=== PATIENT | male | born 2005 | race Caucasian/White ===

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

== ENCOUNTER 2023-05-09 22:46 | Inpatient (IN) | payer BC ==
[~2023-05-09] VITALS: Ht 170.2 cm; Wt 81.6 kg
[~2023-05-09 22:46] MED LIST changes: +KEP500 PO
[2023-05-09 22:59] VITALS: BP 126/74; PULSE 94; RESP 16; TEMP 98.2; O2SAT 97
--- NOTE | 2023-05-09 22:59 | NUR ---
PT ANTHONY ALS. TAKEN TO BED 11
--- NOTE | 2023-05-09 23:20 | NUR ---
BLOOD DRAWN BY IV ESTABLISHED IN [facility]. SENT TO LAB. PT PLACED ON C-MONITOR. AT BEDSIDE. UPDATED AND PT ON POC WITH FULL VERBAL UNDERSTANDING.
[2023-05-09 23:28] LABS: BASOPHILS # (AUTO) 0.1 K/uL (0.00-0.22); BASOPHILS % (AUTO) 0.8 % (0.0-2.0); EOSINOPHILS # (AUTO) 0.3 K/uL (0-0.4); EOSINOPHILS % (AUTO) 4.5 % (0.0-4.0); HEMATOCRIT 41.6 % (36-52); HEMOGLOBIN 14.5 g/dL (12.0-18.0); LYMPHOCYTES # (AUTO) 2.4 K/uL (2.0-11.5); LYMPHOCYTES % (AUTO) 36.9 % (20.5-51.1); MEAN CORPUSCULAR HEMOGLOBIN 29 pg (27-31); MEAN CORPUSCULAR HGB CONC 35 g/dL (33-37); MEAN CORPUSCULAR VOLUME 84.1 fL (80-94); MONOCYTES # (AUTO) 0.4 K/uL (0.8-1.0); NEUTROPHILS # (AUTO) 3.3 K/uL (1.8-7.7); NEUTROPHILS % (AUTO) 51.8 % (42.2-75.2); PLATELET COUNT (AUTO) 257 K/uL (140-450); RED BLOOD CELL COUNT(AUTO) 4.95 MIL/uL (4.20-6.10); RED CELL DISTRIBUTION WIDTH 13.9 % (11.6-13.7); WHITE BLOOD COUNT (AUTO) 6.4 K/uL (4.5-11.0)
[2023-05-09 23:35] LABS: ANION GAP 12.3 (8-16); CARBON DIOXIDE 25.6 mmol/L (21-32); POTASSIUM 3.9 mmol/L (3.5-5.1)
[2023-05-09] MEDS ORDERED: KETOROLAC 15 MG/ML VIAL IVP ONE (23:45)
--- NOTE | 2023-05-10 | NUR ---
Dr. Wolf examining patient.
[2023-05-10] MEDS ORDERED: LORazepam 2 MG/ML VIAL ONE (00:20)
[2023-05-10] MEDS ORDERED: LORazepam 2 MG/ML VIAL IVP ONE (00:20)
--- NOTE | 2023-05-10 00:23 | NUR ---
PATIENT HAD AN EPISODE OF TONIC-CLONIC SEIZURE LASTING ABOUT A MINUTE. PATIENT HAS NO RECOLLECTION OF EPISODE. ATIVAN GIVEN (SEE EMAR). BED PLACED IN LOWEST POSITION. SIDE RAILS UP WITH PADS ON SIDES. PATIENT PLACED IN SIDE-LYING POSITION. PATIENT PLACED ON SUPPLEMENTAL OXYGEN AT 1LPM PER ERMD AND ON CONTINUOUS MONITOR.
[2023-05-10] MEDS ORDERED: levETIRAcetam 1,000 MG in NACL 0.9% 100 ML IV ONE ×2 (00:50→18:25)
[2023-05-10] MEDS ORDERED: levETIRAcetam 100 MG/ML VIAL IV ONE ×2 (00:57→18:52)
--- NOTE | 2023-05-10 01:00 | NUR ---
PATIENT TAKEN TO CT.
--- NOTE | 2023-05-10 01:18 | NUR ---
PT RETURN FROM CT
--- NOTE | 2023-05-10 03:46 | NUR ---
PATIENT ASLEEP AND COMFORTABLE IN BED. NO SIGNS OF ACUTE DISTRESS AT THIS TIME. BED PLACED IN LOWEST POSITION. SIDE RAILS UP WITH PADS ON SIDES. PATIENT IN SIDE-LYING POSITION. PATIENT ON CONTINUOUS MONITOR. FAMILY MEMBER AT BEDSIDE. CALL LIGHT WITHIN REACH.
--- NOTE | 2023-05-10 07:42 | NUR ---
Pt report given to Samaria MOODY. Transfer of care at this time.
--- NOTE | 2023-05-10 08:00 | NUR ---
RECEIVED REPORT, ASSUMED CARE OF PT. PT AWAKE, ALERT, ORIENTED TO PERSON, TIME AND PLACE. PT SAYS HE CANNOT REMEMBER EVENTS SINCE SEIZURE. URINE SAMPLE OBTAINED. NO FURTHER SEIZURE ACTIVITY NOTED. FAMILY AT BEDSIDE.
[2023-05-10 08:10] LABS: APPEARANCE,URINE CLEAR (CLEAR); BILIRUBIN,URINE NEGATIVE (NEGATIVE); BLOOD, URINE TRACE-I (NEGATIVE); COLOR,URINE YELLOW (YELLOW); LEUKOCYTE ESTERASE ,URINE NEGATIVE (NEGATIVE); NITRITE, URINE NEGATIVE (NEGATIVE); UGLUCOSE NEGATIVE (NEGATIVE)
[2023-05-10 08:20] LABS: RBC,URINE 0-5 /HPF (0-5)
[2023-05-10] MEDS ORDERED: NACL 0.9% 1,000 ML IV ONE (10:30)
--- NOTE | 2023-05-10 11:37 | NUR ---
Patient will be admitted to care of DR HORNER. Admited to . Will go to room. Belongings list completed. Report to .
--- NOTE | 2023-05-10 11:50 | NUR ---
RECEIVE ER NURSE PAULETTE'S ENDORSEMENT FOR 18YR OLD MALE PATIENT WHO COME FOR TONIC-CLONIC SEIZURE WHILE WORK. PER REPORT THAT PATIENT HAD 2 EPISODE OF SEIZURE, WITH NKA, AMBULATORY, ALERT X 4 WHILE NO SEIZURE ACTIVITY. PATIENT ON ROOM AIR, CURRENT NPO STATUS. PIV AT LAC 18G FOR NS INFUSING AT 100ML/HR. NURSE LATER START ANOTHER PIV AT L.FOREARM 18G. BOTHE IV ACCESS PATENT. WILL CONTINUE TO MONITOR.
[2023-05-10 12:00] VITALS: BP 114/64; PULSE 60; PULSE 67; RESP 18; TEMP 98.4; O2SAT 98
[2023-05-10 16:00] VITALS: BP 112/69; PULSE 58; PULSE 75; RESP 18; TEMP 98.9; O2SAT 98
[2023-05-10 16:01] VITALS: PULSE 60; RESP 16; O2SAT 98
[2023-05-10] MEDS ORDERED: LORazepam 2 MG/ML VIAL IM/IVP PRN (18:30)
--- NOTE | 2023-05-10 19:30 | NUR ---
RECEIVED PT FROM AM NURSE FOR CONTINUITY OF CARE. PT IS STABLE
[2023-05-10 20:00] VITALS: BP 117/62; PULSE 70; PULSE 75; RESP 18; TEMP 99.1; O2SAT 98
[2023-05-11] VITALS: BP 112/64; PULSE 108; PULSE 78; RESP 18; TEMP 98; O2SAT 99
--- NOTE | 2023-05-11 02:00 | NUR ---
PATIENT ASLEEP, NO SEIZURE ACTIVITY NOTED
[2023-05-11 04:00] VITALS: BP 114/76; PULSE 68; RESP 18; TEMP 98.1; O2SAT 100
--- NOTE | 2023-05-11 07:19 | NUR ---
ENDORSRD PT IN STABLE CONDITION TO AM NURSE FOR CONTINUITY OF CARE
[2023-05-11 08:00] VITALS: BP 96/72; PULSE 61; PULSE 74; RESP 17; TEMP 97.9; O2SAT 99
[2023-05-11] MEDS: levETIRAcetam 500 MG TAB PO SCH ×2 (09:28→20:27)
--- NOTE | 2023-05-11 10:23 | NUR ---
PATIENT HAS BEEN SCREENED AND CATEGORIZED MODERATE NUTRITION RISK. PATIENT WILL BE SEEN WITHIN 3-5 DAYS OF ADMISSION. 05/10/23-05/15/[address]
[2023-05-11] MEDS ORDERED: HYDROcodone/APAP 7.5/325 MG 1 TAB PO PRN (11:20)
[2023-05-11] MEDS ORDERED: ONDANSETRON 4 MG/2 ML VIAL IVP PRN (11:20)
[2023-05-11] MEDS ORDERED: POTASSIUM CHLORIDE 10 MEQ TABER PO PRN (11:20)
[2023-05-11] MEDS ORDERED: MAG SULF 2000 MG/WATER PREMIX 50 ML IV PRN (11:20)
[2023-05-11] MEDS ORDERED: ACETAMINOPHEN 325 MG TAB PO PRN (11:20)
[2023-05-11 11:42] LABS: BASOPHILS % (AUTO) 0.5 % (0.0-2.0); EOSINOPHILS # (AUTO) 0.1 K/uL (0-0.4); EOSINOPHILS % (AUTO) 1.5 % (0.0-4.0); HEMATOCRIT 40.4 % (36-52); HEMOGLOBIN 13.8 g/dL (12.0-18.0); LYMPHOCYTES # (AUTO) 1.8 K/uL (2.0-11.5); LYMPHOCYTES % (AUTO) 25.4 % (20.5-51.1); MEAN CORPUSCULAR HEMOGLOBIN 29 pg (27-31); MEAN CORPUSCULAR HGB CONC 34 g/dL (33-37); MEAN CORPUSCULAR VOLUME 84.4 fL (80-94); MONOCYTES # (AUTO) 0.7 K/uL (0.8-1.0); MONOCYTES % (AUTO) 9.9 % (1.7-9.3); NEUTROPHILS # (AUTO) 4.5 K/uL (1.8-7.7); NEUTROPHILS % (AUTO) 62.7 % (42.2-75.2); PLATELET COUNT (AUTO) 219 K/uL (140-450); RED BLOOD CELL COUNT(AUTO) 4.79 MIL/uL (4.20-6.10); RED CELL DISTRIBUTION WIDTH 13.8 % (11.6-13.7); WHITE BLOOD COUNT (AUTO) 7.2 K/uL (4.5-11.0)
[2023-05-11] MEDS: NACL 0.9% 1,000 ML IV SCH (11:55)
[2023-05-11 11:58] LABS: ANION GAP 11.6 (8-16); CARBON DIOXIDE 27.6 mmol/L (21-32); CREATININE 1.6 mg/dL (0.6-1.3); POTASSIUM 4.2 mmol/L (3.5-5.1)
[2023-05-11 12:00] VITALS: BP 121/81; PULSE 62; PULSE 75; RESP 18; TEMP 97.3; O2SAT 99
[2023-05-11 12:15] LABS: AMYLASE 50 U/L (25-115); CHOL/HDL RATIO 2.3 (1-4.5); FREE T4 (FREE THYROXINE) 0.81 ng/dL (0.76-1.46); HDL CHOLESTEROL 60 mg/dL (40-60); LDL (CALC) 63 mg/dL (60-100); LIPASE 89 U/L (73-393); MAGNESIUM 2.2 mg/dL (1.8-2.4); PHOSPHORUS 3.9 mg/dL (2.5-4.9); THYROID STIMULATING HORMONE 0.83 uIU/mL (0.34-3.74); TRIGLYCERIDES 68 mg/dL (30-150)
[2023-05-11 12:19] LABS: PROTHROMBIN TIME 11.1 secs (10.8-13.4)
[2023-05-11 12:49] LABS: BARBITURATE, URINE NEGATIVE ng/ml (NEG <=200); BENZODIAZEPINE, URINE POSITIVE ng/mL (NEG <=200); CANNABINOID, URINE POSITIVE ng/mL (NEG <=50); COCAINE, URINE NEGATIVE ng/mL (NEG <=300); OPIATE, URINE NEGATIVE ng/mL (NEG <=2000); PHENCYCLIDINE SCREEN,URINE NEGATIVE ng/mL (NEG <=25)
--- NOTE | 2023-05-11 13:25 | NUR ---
DC PLANNING: PATIENT HAS AN ORDER FOR MRI OF THE BRAIN CALLED [facility] SPOKE WITH KELLY Cazares [phone] PROVIDE THE AUTH FOR MRI [id number]*IH FOR TRANSPORT [id number]*PTR . ARRANGED WITH [facility] MRI DEPT , [facility] WILL DIRECTOR OF STRATEGY & MOBILE PT BETWEEN 1:30 -2pM NOTIFIED NIR MOODY. CM TO FOLLOW Addendum: 05/12/23 at 1200 by Patsy Robertson RN DC PLANNING: MRI DONE AT [facility] RESULT PENDING. PER PSYCH DR SALONI FLORES TO REPORT TO DMV, FAXED TO [employer]V [phone] NOTIFIED PATIENT. CM TO FOLLOW
--- NOTE | 2023-05-11 14:05 | NUR ---
RECEIVE THE CALL FROM LISSA ([phone])WALLY, FOR INFORMATION REGARDING PATIENT'S REASON FOR VISIT/TEST. SHORTLY AFTER NURSE GIVE ENDORSE REPORT, JACKIE MINA EMT S ARE HERE TO GARDENING MANAGER PATIENT FOR MRI BRAIN WITH/WITHOUT CONTRAST. PATIENT WILL RETURN AFTER PROCEDURE. Addendum: 05/11/23 at 1714 by Yarely Chang RN PATIENT RETURN FROM MRI PROCEDURE W/ NOT ACUTE DISTRESS NOTE. NURSE PLACE PATIENT BACK TO TEL. MONITOR AND RESUME IV INFUSING. WILL CONTINUE TO MONITOR
--- NOTE | 2023-05-11 15:57 | NUR ---
Stranding Supervisor WASH TANK TENDER was asked in Dr. Corinne Jaimes, Neurologist, to submit the [facility] Metrology Engineer Medical Evaluation form notifying DMV of patients seizure status. WASH TANK TENDER printed out this form, began filling it out and spoke to . 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 WASH TANK TENDER stated this included driving a car and that a form will need to be submitted tot he DMV. stated they are at the [place] in [place], but will assist if filling out paperwork. Dr. Magallanes called with one of her students. Pt. may just be confused, but stated he is unable to access follow up care due to his insurance being confused with another name. WASH TANK TENDER verified and will take pt. a printout re. his insurance coverage. Addendum: 05/11/23 at 1713 by Asia Reese WASH TANK TENDER met with and pt. Pt. just arrived back from [place] for his CT. Pt. was AOx4. WASH TANK TENDER conducted a Discharge Planning Assessment with pt. and . Pt. is no longer driving. He understands the importance of the documentation and filling out the DMV form. completed the first part of the form for pt and pt signed. WASH TANK TENDER called pts' Neurologist, Dr. Jaimes's office. picked up. She wanted WASH TANK TENDER to send the form to [facility]. WASH TANK TENDER explained section 5-13 is the portion the fills out. Dr. Magallanes stated this would be with the Neuro. Dr. Malhotra stated it would be the PCP to fill this out. Dr. Malhotra was coming to this hospital to sign off on the EEG and asked if WASH TANK TENDER could leave the form for her there. WASH TANK TENDER left a note for follow up to get this form and Dr. Malhotra's progress report to the DMV.
[2023-05-11 16:00] VITALS: BP 122/72; PULSE 67; PULSE 73; RESP 18; TEMP 98.4; O2SAT 99
--- NOTE | 2023-05-11 19:30 | NUR ---
RECEIVED REPORT FROM DAY SHIFT NURSE WENDY FOR CONTINUITY OF CARE. PATIENT IS A&O X4. PATIENT IS ON ROOM AIR, BREATHING IS NORMAL WITH SYMMETRICAL RISE AND FALL OF CHEST. IV IS A 18G LFA, RUNNING NS 50. PATIENT IS SITTING IN BED IN SEMI-FOWLERS POSITION, HIS (TRACIE) IS AT BEDSIDE. BED IS IN LOWEST POSITION, WHEELS LOCKED, CALL LIGHT IN PLACE. WILL CONTINUE TO OBSERVE PATIENT.
[2023-05-11 20:00] VITALS: BP 124/77; PULSE 65; PULSE 72; RESP 18; TEMP 98.2; O2SAT 100
[2023-05-11] MEDS: DOCUSATE SODIUM 100 MG GELCAP PO SCH (20:28)
--- NOTE | 2023-05-11 22:00 | NUR ---
2100 MEDICATION ADMINISTERED SUCCESSFULLY WITHOUT ANY ISSUES WITH SWALLOWING. IV IS STILL RUNNING. WILL CONTINUE TO OBSERVE PATIENT.
[2023-05-12] VITALS: BP 151/73; PULSE 60; PULSE 65; RESP 18; TEMP 97.7; O2SAT 98
--- NOTE | 2023-05-12 01:30 | NUR ---
LOOKED IN ON PATIENT. PATIENT WAS SLEEPING. BREATHING WAS NORMAL WITH SYMMETRICAL RISE AND FALL OF CHEST. WILL CONTINUE TO OBSERVE PATIENT.
[2023-05-12 04:00] VITALS: BP 128/82; PULSE 61; PULSE 62; RESP 18; TEMP 97.9; O2SAT 100
--- NOTE | 2023-05-12 04:30 | NUR ---
LOOKED IN ON PATIENT. PATIENT WAS AWAKE WATCHING TV ON PHONE. PATIENT'S IV WAS STILL RUNNING NS AT 50. PATIENT'S BREATHING WAS NORMAL WITH SYMMETRICAL RISE AND FALL OF CHEST. WILL CONTINUE TO OBSERVE PATIENT.
[2023-05-12 04:59] LABS: BASOPHILS % (AUTO) 0.4 % (0.0-2.0); EOSINOPHILS # (AUTO) 0.2 K/uL (0-0.4); EOSINOPHILS % (AUTO) 2.5 % (0.0-4.0); HEMATOCRIT 37.8 % (36-52); HEMOGLOBIN 12.9 g/dL (12.0-18.0); LYMPHOCYTES # (AUTO) 2.1 K/uL (2.0-11.5); LYMPHOCYTES % (AUTO) 28.5 % (20.5-51.1); MEAN CORPUSCULAR HEMOGLOBIN 29 pg (27-31); MEAN CORPUSCULAR HGB CONC 34 g/dL (33-37); MEAN CORPUSCULAR VOLUME 83.9 fL (80-94); MONOCYTES # (AUTO) 0.7 K/uL (0.8-1.0); MONOCYTES % (AUTO) 9.2 % (1.7-9.3); NEUTROPHILS # (AUTO) 4.4 K/uL (1.8-7.7); NEUTROPHILS % (AUTO) 59.4 % (42.2-75.2); PLATELET COUNT (AUTO) 213 K/uL (140-450); RED BLOOD CELL COUNT(AUTO) 4.51 MIL/uL (4.20-6.10); WHITE BLOOD COUNT (AUTO) 7.4 K/uL (4.5-11.0)
[2023-05-12 05:10] LABS: ANION GAP 13.1 (8-16); CARBON DIOXIDE 26.1 mmol/L (21-32); CREATININE 1.4 mg/dL (0.6-1.3); POTASSIUM 4.2 mmol/L (3.5-5.1)
[2023-05-12 05:19] LABS: MAGNESIUM 1.9 mg/dL (1.8-2.4); PHOSPHORUS 3.3 mg/dL (2.5-4.9)
[2023-05-12] MEDS: NACL 0.9% 1,000 ML IV SCH ×2 (07:20→09:57)
--- NOTE | 2023-05-12 07:33 | NUR ---
ENDORSED TO DAY SHIFT NURSE YUMI FOR CONTINUITY OF CARE. PATIENT IS STABLE.
--- NOTE | 2023-05-12 07:43 | NUR ---
RECEIVED PATIENT AT BED SIDE , A/OX4 , ON BED REST , SAFETY PROACTION ON PLACE , SIDE RAILS UP X2 BED IN LOWER POSITION , CALL LIGHT WITHIN REACH , AMBULATORY X10 , SKIN INTACT , CONTINENT GI AND , TOILET PRIVILEGE , ON REGULAR DIET , NO COMPLAIN MAT THIS TIME , ON IV FLUID N/S 50CC/H , PATIENT STILL UNDER OBSERVE .
[2023-05-12 08:00] VITALS: BP 117/63; PULSE 58; RESP 16; TEMP 97.5; O2SAT 98
[2023-05-12] MEDS: DOCUSATE SODIUM 100 MG GELCAP PO SCH (08:30)
[2023-05-12] MEDS: levETIRAcetam 500 MG TAB PO SCH (08:30)
[2023-05-12] MEDS ORDERED: PANTOPRAZOLE 40 MG INJ VIAL IVP SCH (09:00)
[2023-05-12] MEDS ORDERED: LEVE1000 PO (10:32)
[2023-05-12 11:56] VITALS: BP 118/77; PULSE 63; RESP 18; TEMP 98.1; O2SAT 97
[2023-05-12 12:03] VITALS: BP 116/77; PULSE 63; RESP 18; TEMP 98.1
--- NOTE | 2023-05-12 12:15 | NUR ---
Executive Search Consultant: Attempted to provide the patient with information on applying for state disability insurance, however he was sleep in bed. I went to leave it at the bedside table, and the "" advised that she was not interested in such paperwork. She was adamant about not accepting the paperwork and stated "he does not want or need it". She went on to state that he can't take it. I suggested he review the documents with a professional to see if it is something he could benefit from, and she declined. Documents were not left at bedside. I advised the nurse of my interactions and informed her disability paperwork was not left at bedside for him.
--- NOTE | 2023-05-12 12:37 | NUR ---
PATIENT HAS DISCHARGE ORDER TO GO HOME , VSS , NO COMPLAIN , A/OX4 , DISCHARGE PACKET EXPLAIN FOR PATIENT PATIENT VERBALIZED UNDERSTANDING OF GIVEN , MEDICATION RECONCILED , ALL HIS DOCUMENT SIGNED AND PLACE ON CHART MONITOR , IV AND ARM BAND REMOVED ASSISTED TO GUIDO , PICKED BY HIS .
[2023-05-12 12:40] VITALS: PULSE 62
--- NOTE | 2023-05-12 15:50 | NUR ---
Pusher Runner: DMV paperwork received back from the RT department. Signed document placed with RN DELL Garner for further follow through.
== END 2023-05-12 12:50 | disposition home or self-care (01) | DRG 53 ==
LOC: MED 22:46 → MTU 05-10 10:29
PROVIDERS: ADMIT Family Medicine; ATTEND Family Medicine
PROC: 4A10X4Z Monitoring of Central Nervous Electrical Activity, External Approach (ICD-10-PCS; principal; 2023-05-11)
DX: G40.409 Other generalized epilepsy and epileptic syndromes, not intractable, without status epilepticus (principal); N17.0 Acute kidney failure with tubular necrosis; E86.0 Dehydration; F12.90 Cannabis use, unspecified, uncomplicated
CPT/HCPCS: 36415; 70450; 71045; 80048; 80305; 81001; 82140; 82150; 83036; 83605; 83690; 83735; 83880; 84100; 84439; 84443; 84484; 85025; 85610; 85730; 87040; 87081; 87086; 92526; 93005; 95816; 96361; 96365; 96367; 96374; 96375; 99285; C9113; J1885; J1953; J2060; Q0092

== ENCOUNTER 2023-09-02 23:37 | Emergency (ER) | payer BC ==
[~2023-09-02] VITALS: Ht 170.2 cm; Wt 81.6 kg
[~2023-09-02 23:37] MED LIST changes: -IBUP-1842 PO; -KEP500 PO; +LEVE1000 PO
[2023-09-02 23:50] VITALS: BP 110/67; PULSE 80; RESP 18; TEMP 97.9; O2SAT 98
[2023-09-03] MEDS ORDERED: SULFAMETH/TRIMETH DS 800/160MG 1 TAB PO ONE (01:15)
[2023-09-03] MEDS ORDERED: LIDOCAINE 2% 1000 MG/50 ML VIAL INJ ONE (01:15)
[2023-09-03 01:46] VITALS: TEMP 97.6
[2023-09-03] MEDS ORDERED: SULF-59 PO (03:03)
[2023-09-03] MEDS ORDERED: BACI-418 TP (03:09)
[2023-09-03 03:13] VITALS: BP 105/64; PULSE 62; RESP 14; O2SAT 99
== END 2023-09-03 03:13 | disposition home or self-care (01) ==
LOC: MED 23:37
DX: L03.011 Cellulitis of right finger (principal); Z79.899 Other long term (current) drug therapy; Z79.2 Long term (current) use of antibiotics
CPT/HCPCS: 26010; 99284; J2001

== ENCOUNTER 2023-09-05 16:12 | Emergency (ER) | payer BC ==
[~2023-09-05] VITALS: Ht 170.2 cm; Wt 78.0 kg
[~2023-09-05 16:12] MED LIST changes: +BACI-418 TP; +SULF-59 PO
[2023-09-05 16:25] VITALS: BP 100/57; PULSE 82; RESP 16; TEMP 98; O2SAT 99
[2023-09-05 17:02] VITALS: BP 100/57; PULSE 82; RESP 16; TEMP 98; O2SAT 99
== END 2023-09-05 17:02 | disposition home or self-care (01) ==
LOC: MED 16:12
DX: Z48.01 Encounter for change or removal of surgical wound dressing (principal); Z86.69 Personal history of other diseases of the nervous system and sense organs; Z79.899 Other long term (current) drug therapy; Z79.2 Long term (current) use of antibiotics
CPT/HCPCS: 99281

== ENCOUNTER 2023-10-30 16:43 | Emergency (ER) | payer BC ==
[~2023-10-30] VITALS: Ht 170.2 cm; Wt 81.6 kg
[2023-10-30 16:54] VITALS: BP 105/72; PULSE 57; RESP 16; TEMP 97.9; O2SAT 99
[2023-10-30] MEDS ORDERED: IBUP-2213 PO (17:39)
[2023-10-30] MEDS ORDERED: CEPH-588 PO (17:39)
== END 2023-10-30 17:48 | disposition home or self-care (01) ==
LOC: MED 16:43
DX: L03.012 Cellulitis of left finger (principal); Z86.69 Personal history of other diseases of the nervous system and sense organs; Z79.899 Other long term (current) drug therapy; Z79.2 Long term (current) use of antibiotics; Z79.1 Long term (current) use of non-steroidal anti-inflammatories (NSAID)
CPT/HCPCS: 99283

== ENCOUNTER 2023-12-17 02:02 | Emergency (ER) | payer BC ==
[~2023-12-17] VITALS: Ht 167.6 cm; Wt 81.6 kg
[~2023-12-17 02:02] MED LIST changes: +CEPH-588 PO; +IBUP-2213 PO
[2023-12-17 02:30] VITALS: BP 115/74; PULSE 69; RESP 17; TEMP 98; O2SAT 100
[2023-12-17 04:30] VITALS: BP 115/74; PULSE 69; RESP 17; TEMP 98; O2SAT 100
[2023-12-17] MEDS ORDERED: ACET-10509 PO (04:30)
[2023-12-17] MEDS ORDERED: IBUP-2213 PO (04:30)
[2023-12-17] MEDS ORDERED: CYCL-711 PO (04:30)
[2023-12-17] MEDS ORDERED: LID5T TP (04:30)
[2023-12-17] MEDS: levETIRAcetam 500 MG TAB PO ONE (04:44)
[2023-12-17] MEDS: KETOROLAC 30 MG/ML VIAL IM ONE (05:03)
== END 2023-12-17 04:30 | disposition home or self-care (01) ==
LOC: MED 02:02
DX: S39.012A Strain of muscle, fascia and tendon of lower back, initial encounter (principal); S29.012A Strain of muscle and tendon of back wall of thorax, initial encounter; Z86.69 Personal history of other diseases of the nervous system and sense organs; Z79.899 Other long term (current) drug therapy; V43.52XA Car driver injured in collision with other type car in traffic accident, initial encounter; Y93.89 Activity, other specified; Y92.410 Unspecified street and highway as the place of occurrence of the external cause; Y99.8 Other external cause status
CPT/HCPCS: 71045; 72080; 96372; 99284; J1885